=== PATIENT | male | born 1955 | race Caucasian/White ===

== ENCOUNTER 2016-05-30 07:04 | Day surgery (SDC) | payer BC, MEDICARE, OTHER ==
[2016-05-26 16:13] VITALS: BMI 22.0
[~2016-05-30 07:04] MED LIST: LACTATED RINGERS 1,000 ML IV SCH
[2016-05-30 07:20] VITALS: RESP 16; TEMP 97.5
[2016-05-30 07:26] LABS: Glucose,Whole Blood 156 mg/dL (75-99)
[2016-05-30] MEDS ORDERED: LIDOCAINE 1% INJ 10MG/ML (20 ML MDV) ONE (07:37)
[2016-05-30] MEDS ORDERED: PROPOFOL 10 MG/ML 20 ML VIAL IV ONE (07:37)
--- NOTE | 2016-05-30 07:39 | P.GSHP ---
History of Present Illness H&P Date: 05/30/16 Chief Complaint: Screening colonoscopy This is a 60-year-old male who presents today for screening colonoscopy. He has never had a colonoscopy before. Past Medical History Past Medical History: Diabetes Mellitus, Hypertension, Myocardial Infarction ([place] ) Additional Past Medical History / Comment(s): hx migraines, hx ulcer, Last Myocardial Infarction Date:: 2011 History of Any Multi-Drug Resistant Organisms: None Reported Past Surgical History: No Surgical Hx Reported Past Anesthesia/Blood Transfusion Reactions: No Reported Reaction Past Psychological History: No Psychological Hx Reported Smoking Status: Former smoker Past Alcohol Use History: None Reported Additional Past Alcohol Use History / Comment(s): quit smoking 16 yrs ago, smoked since age 10 Past Drug Use History: Marijuana - Past Family History Sister(s) Family Medical History: Cancer Medications and Allergies Home Medications Medication Instructions Recorded Confirmed Type Aspirin [Adult Low Dose Aspirin EC] 81 mg PO DAILY 05/26/16 05/30/16 History Ergocalciferol [Vitamin D2] 50,000 unit PO Q7D 05/26/16 05/30/16 History Ramipril [Altace] 2.5 mg PO 1300 05/26/16 05/30/16 History metFORMIN HCL 1,000 mg PO BID 05/26/16 05/30/16 History Allergies Allergy/AdvReac Type Severity Reaction Status Date / Time onion Allergy Dyspnea,throat Verified 05/26/16 16:00 swelling Surgical - Exam Vital Signs Temp Pulse Resp BP Pulse Ox 97.5 F L 73 16 114/78 99 05/30/16 07:18 05/30/16 07:18 05/30/16 07:18 05/30/16 07:18 05/30/16 07:18 - General well developed, no distress - Eyes PERRL - ENT normal pinna - Neck no masses - Respiratory normal expansion - Cardiovascular Rhythm: regular - Abdomen Abdomen: soft, non tender Results - Labs Abnormal Lab Results - Last 24 Hours (Table) 05/30/16 Range/Units 07:22 POC Glucose (mg/dL) 156 H (75-99) mg/dL Assessment and Plan Plan: We'll perform initial screening colonoscopy.
--- NOTE | 2016-05-30 07:48 | P.OP ---
Date of Procedure: 05/30/16 Preoperative Diagnosis: Screening colonoscopy Postoperative Diagnosis: Normal colonoscopy Procedure(s) Performed: Colonoscopy Anesthesia: MAC Surgeon: Justin Jay Pathology: none sent Condition: stable Disposition: PACU Description of Procedure: PROCEDURE: The patient was placed on the endoscopy table in the lateral position. Digital rectal examination was performed which revealed no abnormalities. The prostate was symmetrical without nodules. Flexible colonoscope was then placed in the patient's anus and passed throughout the entire colon. The ileocecal valve was visualized. The cecum, ascending, transverse, descending and sigmoid colon were normal. The rectum was normal as well. There were no masses, polyps or diverticula noted in the entire colon. SUMMARY OF FINDINGS: Normal colonoscopy.
[2016-05-30 08:28] VITALS: BP 107/75; PULSE 66
== END 2016-05-30 08:46 | disposition home or self-care (01) ==
LOC: ORWHC2ENDO 07:04
PROVIDERS: ATTEND Surgery
DX: Z12.11 Encounter for screening for malignant neoplasm of colon (principal); I25.10 Atherosclerotic heart disease of native coronary artery without angina pectoris; I25.2 Old myocardial infarction; I10 Essential (primary) hypertension; G43.909 Migraine, unspecified, not intractable, without status migrainosus; F12.90 Cannabis use, unspecified, uncomplicated; E11.9 Type 2 diabetes mellitus without complications; Z79.84 Long term (current) use of oral hypoglycemic drugs; Z79.82 Long term (current) use of aspirin; Z79.899 Other long term (current) drug therapy; Z87.891 Personal history of nicotine dependence
CPT/HCPCS: J2001; J2704; G0121; 45378

== ENCOUNTER 2017-07-05 13:16 | Inpatient (IN) | payer BC ==
[2017-07-05] MEDS ORDERED: ONDANSETRON 4 MG/2 ML VIAL IVP STA (13:29)
[2017-07-05] MEDS ORDERED: PANTOPRAZOLE 40 MG/10 ML VIAL IVP STA (13:29)
[2017-07-05] MEDS ORDERED: SODIUM CHLORIDE 0.9% 1,000 ML IV STA (13:29)
--- NOTE | 2017-07-05 13:31 | ED ---
General Adult HPI - General Chief complaint: GI Bleed Stated complaint: Vomiting Blood Time Seen by Provider: 07/05/17 13:20 Source: patient, EMS, RN notes reviewed Mode of arrival: EMS Limitations: no limitations - History of Present Illness Initial comments: This is a 61-year-old male who presents emergency Department with a complaint of syncope. Patient states he got up and felt lightheaded and nauseated went to the bathroom and vomited up blood 3 times and when EMS arrived he was unresponsive. He became responsive soon thereafter. Patient denies any drinking history patient denies any previous history of vomiting up blood. Patient denies any blood disorders. Patient denies any pain. Patient currently states he has no headache no numbness or weakness. Patient denies lightheadedness while lying in bed. Patient denies chest pain palpitations difficulty breathing shortness of breath. Patient denies any abdominal pain. Patient states he still mildly nauseated. Patient denies any recent fever chills or cough. Patient is unaware of why this is happening. - Related Data Home Medications Medication Instructions Recorded Confirmed Aspirin [Adult Low Dose Aspirin EC] 81 mg PO DAILY 05/26/16 07/05/17 Ergocalciferol [Vitamin D2] 50,000 unit PO SA 05/26/16 07/05/17 Ramipril [Altace] 2.5 mg PO DAILY 05/26/16 07/05/17 metFORMIN HCL 1,000 mg PO BID 05/26/16 07/05/17 Cilostazol [Pletal] 100 mg PO BID 07/05/17 07/05/17 Fenofibrate Nanocrystallized 145 mg PO DAILY 07/05/17 07/05/17 [Fenofibrate] Gabapentin 600 mg PO HS 07/05/17 07/05/17 Allergies Allergy/AdvReac Type Severity Reaction Status Date / Time onion Allergy Dyspnea,throat Verified 07/05/17 13:37 swelling Review of Systems ROS Statement: Those systems with pertinent positive or pertinent negative responses have been documented in the HPI. ROS Other: All systems not noted in ROS Statement are negative. Past Medical History Past Medical History: Diabetes Mellitus, Hypertension, Myocardial Infarction ([place] ) Additional Past Medical History / Comment(s): hx migraines, hx ulcer, Last Myocardial Infarction Date:: 2011 History of Any Multi-Drug Resistant Organisms: None Reported Past Surgical History: No Surgical Hx Reported Past Anesthesia/Blood Transfusion Reactions: No Reported Reaction Past Psychological History: No Psychological Hx Reported Smoking Status: Former smoker Past Alcohol Use History: None Reported Past Drug Use History: Marijuana - Past Family History Sister(s) Family Medical History: Cancer General Exam - General Exam Comments Initial Comments: GENERAL: Patient is well-developed and well-nourished. Patient is nontoxic and well- hydrated and is in mild distress. ENT: Neck is soft and supple. No significant lymphadenopathy is noted. Oropharynx is clear. Moist mucous membranes. Neck has full range of motion without eliciting any pain. EYES: The sclera were anicteric and conjunctiva were pink and moist. Extraocular movements were intact and pupils were equal round and reactive to light. Eyelids were unremarkable. PULMONARY: Unlabored respirations. Good breath sounds bilaterally. No audible rales rhonchi or wheezing was noted. CARDIOVASCULAR: There is a regular rate and rhythm without any murmurs gallops or rubs. ABDOMEN: Soft and nontender with normal bowel sounds. No palpable organomegaly was noted. There is no palpable pulsatile mass. SKIN: Skin is clear with no lesions or rashes and otherwise unremarkable. NEUROLOGIC: Patient is alert and oriented x3. Cranial nerves II through XII are grossly intact. Motor and sensory are also intact. Normal speech, volume and content. Symmetrical smile. MUSCULOSKELETAL: Normal extremities with adequate strength and full range of motion. No lower extremity swelling or edema. No calf tenderness. LYMPHATICS: No significant lymphadenopathy is noted PSYCHIATRIC: Normal psychiatric evaluation. Normal interpersonal interactions appears functionally intact in deals appropriately with others. No signs of depression. No signs of anxiety. Limitations: no limitations Course Vital Signs 07/05/17 07/05/17 07/05/17 13:18 14:00 14:25 Temperature 96.9 F L Pulse Rate 96 75 96 Respiratory 16 20 20 Rate Blood Pressure 125/79 126/85 113/76 O2 Sat by Pulse 97 99 100 Oximetry Medical Decision Making - Medical Decision Making EKG shows normal sinus rhythm at 89 bpm NV interval is 124 tresses 84 QT interval 370 QTC is 450. Patient's EKG shows no ST segment elevation or depression or T wave abnormalities are noted. Patient vomited while in the emergency department it did look like hematemesis however when we tested it came up negative. I spoke with Dr. Fajardo I will be admitting the patient I will be consulting GI and I will be doing repeat CBCs. I wrote admitting orders. - Lab Data Result diagrams: 07/05/17 14:05 07/05/17 14:05 Lab Results 07/05/17 07/05/17 07/05/17 Range/Units 14:05 14:05 14:05 WBC 13.3 H (3.8-10.6) k/uL RBC 4.38 (4.30-5.90) m/uL Hgb 13.4 (13.0-17.5) gm/dL Hct 36.7 L (39.0-53.0) % MCV 83.9 (80.0-100.0) fL MCH 30.6 (25.0-35.0) pg MCHC 36.5 (31.0-37.0) g/dL RDW 12.9 (11.5-15.5) % Plt Count 256 (150-450) k/uL Neutrophils % 84 % Lymphocytes % 12 % Monocytes % 3 % Eosinophils % 0 % Basophils % 0 % Neutrophils # 11.1 H (1.3-7.7) k/uL Lymphocytes # 1.6 (1.0-4.8) k/uL Monocytes # 0.4 (0-1.0) k/uL Eosinophils # 0.1 (0-0.7) k/uL Basophils # 0.0 (0-0.2) k/uL PT (9.0-12.0) sec INR (<1.2) APTT (22.0-30.0) sec Sodium 143 (137-145) mmol/L Potassium 3.8 (3.5-5.1) mmol/L Chloride 104 (98-107) mmol/L Carbon Dioxide 27 (22-30) mmol/L Anion Gap 12 mmol/L BUN 25 H (9-20) mg/dL Creatinine 0.71 (0.66-1.25) mg/dL Est GFR (CKD-EPI)AfAm >90 (>60 ml/min/1.73 sqM) Est GFR (CKD-EPI)NonAf >90 (>60 ml/min/1.73 sqM) Glucose 191 H (74-99) mg/dL Plasma Lactic Acid Parish (0.7-2.0) mmol/L Calcium 8.9 (8.4-10.2) mg/dL Total Bilirubin 0.4 (0.2-1.3) mg/dL AST 17 (17-59) U/L ALT 21 (21-72) U/L Alkaline Phosphatase 30 L (38-126) U/L Total Creatine Kinase 73 (55-170) U/L CK-MB (CK-2) 1.6 (0.0-2.4) ng/mL CK-MB (CK-2) Rel Index 2.2 Troponin I <0.012 (0.000-0.034) ng/mL Total Protein 6.3 (6.3-8.2) g/dL Albumin 4.0 (3.5-5.0) g/dL Gastric Occult Blood (Negative) Salicylates <1.0 mg/dL Blood Type Blood Type Recheck Antibody Screen Spec Expiration Date 07/05/17 07/05/17 07/05/17 Range/Units 14:05 14:05 14:05 WBC (3.8-10.6) k/uL RBC (4.30-5.90) m/uL Hgb (13.0-17.5) gm/dL Hct (39.0-53.0) % MCV (80.0-100.0) fL MCH (25.0-35.0) pg MCHC (31.0-37.0) g/dL RDW (11.5-15.5) % Plt Count (150-450) k/uL Neutrophils % % Lymphocytes % % Monocytes % % Eosinophils % % Basophils % % Neutrophils # (1.3-7.7) k/uL Lymphocytes # (1.0-4.8) k/uL Monocytes # (0-1.0) k/uL Eosinophils # (0-0.7) k/uL Basophils # (0-0.2) k/uL PT 11.3 (9.0-12.0) sec INR 1.2 H (<1.2) APTT 21.6 L (22.0-30.0) sec Sodium (137-145) mmol/L Potassium (3.5-5.1) mmol/L Chloride (98-107) mmol/L Carbon Dioxide (22-30) mmol/L Anion Gap mmol/L BUN (9-20) mg/dL Creatinine (0.66-1.25) mg/dL Est GFR (CKD-EPI)AfAm (>60 ml/min/1.73 sqM) Est GFR (CKD-EPI)NonAf (>60 ml/min/1.73 sqM) Glucose (74-99) mg/dL Plasma Lactic Acid Parish 1.1 (0.7-2.0) mmol/L Calcium (8.4-10.2) mg/dL Total Bilirubin (0.2-1.3) mg/dL AST (17-59) U/L ALT (21-72) U/L Alkaline Phosphatase (38-126) U/L Total Creatine Kinase (55-170) U/L CK-MB (CK-2) (0.0-2.4) ng/mL CK-MB (CK-2) Rel Index Troponin I (0.000-0.034) ng/mL Total Protein (6.3-8.2) g/dL Albumin (3.5-5.0) g/dL Gastric Occult Blood (Negative) Salicylates mg/dL Blood Type A Negative Blood Type Recheck CABO Indicated Antibody Screen NEGATIVE Spec Expiration Date 07/08/2017 - 230407/05/17 Range/Units 14:25 WBC (3.8-10.6) k/uL RBC (4.30-5.90) m/uL Hgb (13.0-17.5) gm/dL Hct (39.0-53.0) % MCV (80.0-100.0) fL MCH (25.0-35.0) pg MCHC (31.0-37.0) g/dL RDW (11.5-15.5) % Plt Count (150-450) k/uL Neutrophils % % Lymphocytes % % Monocytes % % Eosinophils % % Basophils % % Neutrophils # (1.3-7.7) k/uL Lymphocytes # (1.0-4.8) k/uL Monocytes # (0-1.0) k/uL Eosinophils # (0-0.7) k/uL Basophils # (0-0.2) k/uL PT (9.0-12.0) sec INR (<1.2) APTT (22.0-30.0) sec Sodium (137-145) mmol/L Potassium (3.5-5.1) mmol/L Chloride (98-107) mmol/L Carbon Dioxide (22-30) mmol/L Anion Gap mmol/L BUN (9-20) mg/dL Creatinine (0.66-1.25) mg/dL Est GFR (CKD-EPI)AfAm (>60 ml/min/1.73 sqM) Est GFR (CKD-EPI)NonAf (>60 ml/min/1.73 sqM) Glucose (74-99) mg/dL Plasma Lactic Acid Parish (0.7-2.0) mmol/L Calcium (8.4-10.2) mg/dL Total Bilirubin (0.2-1.3) mg/dL AST (17-59) U/L ALT (21-72) U/L Alkaline Phosphatase (38-126) U/L Total Creatine Kinase (55-170) U/L CK-MB (CK-2) (0.0-2.4) ng/mL CK-MB (CK-2) Rel Index Troponin I (0.000-0.034) ng/mL Total Protein (6.3-8.2) g/dL Albumin (3.5-5.0) g/dL Gastric Occult Blood Negative (Negative) Salicylates mg/dL Blood Type Blood Type Recheck Antibody Screen Spec Expiration Date Disposition Clinical Impression: Syncope, Acute vomiting Disposition: ADMITTED IP TO THIS HOSP Referrals: Dilia Velez DO [Primary Care Provider] - 1-2 days Time of Disposition: 15:07
[2017-07-05 14:21] LABS: Basophils % (A) 0 %; Eosinophils # (A) 0.1 k/uL (0-0.7); Eosinophils % (A) 0 %; HCT 36.7 % (39.0-53.0); HGB 13.4 gm/dL (13.0-17.5); Lymphocytes # (A) 1.6 k/uL (1.0-4.8); Lymphocytes % (A) 12 %; MCH 30.6 pg (25.0-35.0); MCHC 36.5 g/dL (31.0-37.0); MCV 83.9 fL (80.0-100.0); Mean Platelet Volume 7.4; Monocytes # (A) 0.4 k/uL (0-1.0); Monocytes % (A) 3 %; Neutrophils # (A) 11.1 k/uL (1.3-7.7); Neutrophils % (A) 84 %; Platelet Count 256 k/uL (150-450); RBC 4.38 m/uL (4.30-5.90); RDW 12.9 % (11.5-15.5); WBC 13.3 k/uL (3.8-10.6)
[2017-07-05 14:27] LABS: ALT 21 U/L (21-72); AST 17 U/L (17-59); Alkaline Phosphatase 30 U/L (38-126); Anion Gap 12 mmol/L; Blood Urea Nitrogen 25 mg/dL (9-20); Calcium 8.9 mg/dL (8.4-10.2); Carbon Dioxide 27 mmol/L (22-30); Chloride 104 mmol/L (98-107); Glucose 191 mg/dL (74-99); Potassium 3.8 mmol/L (3.5-5.1); Salicylate <1.0 mg/dL; Sodium 143 mmol/L (137-145); Total Bilirubin 0.4 mg/dL (0.2-1.3); Total Protein 6.3 g/dL (6.3-8.2)
[2017-07-05 14:38] LABS: INR 1.2 (<1.2); Partial Thromboplastin Time 21.6 sec (22.0-30.0); Prothrombin Time 11.3 sec (9.0-12.0)
[2017-07-05 14:40] LABS: Creatine Kinase 73 U/L (55-170)
[2017-07-05 14:53] LABS: Creatine Kinase MB 1.6 ng/mL (0.0-2.4); Troponin I <0.012 ng/mL (0.000-0.034)
[2017-07-05] MEDS ORDERED: SODIUM CHLORIDE 0.9% 1,000 ML IV ONE (15:16)
[2017-07-05 16:59] LABS: Glucose,Whole Blood 163 mg/dL (75-99)
[2017-07-05 17:07] VITALS: RESP 16
[2017-07-05] MEDS: PANTOPRAZOLE 40 MG/10 ML VIAL IVP SCH (20:05)
[2017-07-05 20:45] LABS: Glucose,Whole Blood 125 mg/dL (75-99)
[2017-07-05 23:14] LABS: Basophils % (A) 0 %; Eosinophils % (A) 0 %; HCT 30.6 % (39.0-53.0); HGB 10.9 gm/dL (13.0-17.5); Lymphocytes # (A) 1.8 k/uL (1.0-4.8); Lymphocytes % (A) 14 %; MCHC 35.7 g/dL (31.0-37.0); Monocytes # (A) 0.6 k/uL (0-1.0); Monocytes % (A) 5 %; Neutrophils # (A) 10.1 k/uL (1.3-7.7); Neutrophils % (A) 80 %; Platelet Count 216 k/uL (150-450); RBC 3.64 m/uL (4.30-5.90); RDW 12.9 % (11.5-15.5); WBC 12.6 k/uL (3.8-10.6)
[2017-07-06 05:54] LABS: Glucose,Whole Blood 120 mg/dL (75-99)
[2017-07-06 06:23] LABS: Basophils % (A) 0 %; Eosinophils # (A) 0.1 k/uL (0-0.7); Eosinophils % (A) 1 %; HCT 32.8 % (39.0-53.0); HGB 11.2 gm/dL (13.0-17.5); Lymphocytes # (A) 2.3 k/uL (1.0-4.8); Lymphocytes % (A) 21 %; MCH 29.3 pg (25.0-35.0); MCHC 34.1 g/dL (31.0-37.0); MCV 86.1 fL (80.0-100.0); Mean Platelet Volume 8.6; Monocytes # (A) 0.5 k/uL (0-1.0); Monocytes % (A) 5 %; Neutrophils # (A) 7.9 k/uL (1.3-7.7); Neutrophils % (A) 73 %; Platelet Count 218 k/uL (150-450); RBC 3.81 m/uL (4.30-5.90); RDW 13.3 % (11.5-15.5); WBC 10.9 k/uL (3.8-10.6)
[2017-07-06 06:38] LABS: Anion Gap 10 mmol/L; Blood Urea Nitrogen 17 mg/dL (9-20); Calcium 8.5 mg/dL (8.4-10.2); Carbon Dioxide 26 mmol/L (22-30); Chloride 107 mmol/L (98-107); Glucose 121 mg/dL (74-99); Potassium 3.5 mmol/L (3.5-5.1); Sodium 143 mmol/L (137-145)
[2017-07-06] MEDS: PANTOPRAZOLE 40 MG/10 ML VIAL IVP SCH ×2 (08:39→20:59)
--- NOTE | 2017-07-06 11:08 | P.CONS ---
History of Present Illness - Reason for Consult Consult date: 07/06/17 GI bleed hematemesis Requesting physician: Kassy Fajardo - History of Present Illness 61-year-old male PMH diabetes, hypertension, migraines, neuropathy, admitted with acute syncopal episode with hematemesis that occurred yesterday. He developed increased nausea followed by 5-6 episodes of burgundy-colored emesis. Presently denies abdominal pain. Denies dyspepsia or dysphagia indigestion. Occasional [id number] Tums as needed. Denies melena or hematochezia. No history of GI bleed. No history of EGD. Colonoscopy about 6 months ago unremarkable. He's been told in the past he has an ulcer but never documented by endoscopy. He takes baby aspirin and Pletal on a daily basis. Hemoglobin on admission 13.4 presently 11.2. White count 10.9. BUN 25. Creatinine 0.7. Presently 17 and 0.7. No EtOH NSAIDs or excessive usage of aspirin. Review of Systems RConstitutional: Denies fever, chills, sweats, weight gain, or loss. HEENT: Negative for migraines, blurred vision or loss, earaches, drainage, tinnitus, oral mucosal lesions, dysphagia, or odynophagia. Cardiac: Negative for chest pain, arrhythmias, or palpitation. Respiratory: Negative for shortness of breath, hemoptysis, cough, or sputum production. Gastrointestinal: See HPI for pertinent findings. Genitourinary: Negative for hematuria, urgency, frequency, polyuria, dysuria, or penile discharge. Musculoskeletal: Negative for muscle aches, swelling, arthritis, and arthralgias. Neurologic: Negative for stroke or TIA. Endocrine: Negative for thyroid problems. Skin: Negative for rash or itching. Psychiatric: Negative history for depression and anxietyale Past Medical History Past Medical History: Diabetes Mellitus, Hypertension, Myocardial Infarction ([place] ) Additional Past Medical History / Comment(s): hx migraines, hx ulcer, on gabapentin when asked if he had neuropathy -he stated no Last Myocardial Infarction Date:: 2011 History of Any Multi-Drug Resistant Organisms: None Reported Past Surgical History: No Surgical Hx Reported Additional Past Surgical History / Comment(s): colonoscopy denies having egd or heart caths Past Anesthesia/Blood Transfusion Reactions: No Reported Reaction Smoking Status: Former smoker - Past Family History Sister(s) Family Medical History: Cancer Father Family Medical History: Unable to Obtain Additional Family Medical History / Comment(s): pt stated he never knew his dad Mother Additional Family Medical History / Comment(s): stated from poss medication reaction Medications and Allergies Home Medications Medication Instructions Recorded Confirmed Type Aspirin [Adult Low Dose Aspirin EC] 81 mg PO DAILY 05/26/16 07/05/17 History Ergocalciferol [Vitamin D2] 50,000 unit PO SA 05/26/16 07/05/17 History Ramipril [Altace] 2.5 mg PO DAILY 05/26/16 07/05/17 History metFORMIN HCL 1,000 mg PO BID 05/26/16 07/05/17 History Cilostazol [Pletal] 100 mg PO BID 07/05/17 07/05/17 History Fenofibrate Nanocrystallized 145 mg PO DAILY 07/05/17 07/05/17 History [Fenofibrate] Gabapentin 600 mg PO HS 07/05/17 07/05/17 History Allergies Allergy/AdvReac Type Severity Reaction Status Date / Time onion Allergy Dyspnea,throat Verified 07/05/17 13:37 swelling Physical Exam Vitals: Vital Signs Temp Pulse Pulse Resp BP BP Pulse Ox 07/06/17 08:00 97.8 F 84 16 108/70 99 07/06/17 04:00 98 F 97 16 119/75 97 07/05/17 23:37 98.5 F 91 16 123/71 98 07/05/17 20:00 97.8 F 91 16 119/72 100 07/05/17 17:06 97.3 F L 88 16 110/73 98 07/05/17 16:00 98.3 F 85 18 111/72 100 07/05/17 15:30 85 20 107/74 100 07/05/17 15:00 87 20 114/76 100 07/05/17 14:25 96 20 113/76 100 07/05/17 14:00 75 20 126/85 99 07/05/17 13:18 96.9 F L 96 16 125/79 97 Intake and Output 07/05/17 07/06/17 07/06/17 22:59 06:59 14:59 Intake Total 800 80 Output Total 600 Balance 200 80 Intake: IV 800 80 0.9 80 Sodium Chloride 0.9% 1, 800 000 ml @ 100 mls/hr IV . Q10H ONE Rx#:[id number] Output: Urine 600 Other: Voiding Method Toilet Toilet Toilet Weight 63.3 kg General appearance: The patient is alert, oriented, in no acute distress. HET: Head is normocephalic and atraumatic. Pupils are equal and reactive. Oropharynx is clear without lesions. Neck: Supple without lymphadenopathy. Trachea midline. Heart: S1 S2. Regular rate and rhythm. Lungs: No crackles or wheezes are heard. Abdomen: Soft, nontender, nondistended with bowel sounds. No peritoneal signs. No palpable organomegaly or masses. Extremities: Normal skin color and turgor. No cyanosis, rash, ulceration, clubbing, or edema. Radial and pedal pulses are 2/4 bilaterally. Neurological: No focal deficits. Strength and sensation are grossly intact. Results CBC & Chem 7: 07/06/17 06:06 07/06/17 06:06 Labs: Abnormal Lab Results - Last 24 Hours (Table) 07/05/17 07/05/17 07/05/17 Range/Units 14:05 14:05 14:05 WBC 13.3 H (3.8-10.6) k/uL RBC (4.30-5.90) m/uL Hgb (13.0-17.5) gm/dL Hct 36.7 L (39.0-53.0) % Neutrophils # 11.1 H (1.3-7.7) k/uL INR 1.2 H (<1.2) APTT 21.6 L (22.0-30.0) sec BUN 25 H (9-20) mg/dL Glucose 191 H (74-99) mg/dL POC Glucose (mg/dL) (75-99) mg/dL Alkaline Phosphatase 30 L (38-126) U/L 07/05/17 07/05/17 07/05/17 Range/Units 16:55 20:37 22:51 WBC 12.6 H (3.8-10.6) k/uL RBC 3.64 L (4.30-5.90) m/uL Hgb 10.9 L (13.0-17.5) gm/dL Hct 30.6 L (39.0-53.0) % Neutrophils # 10.1 H (1.3-7.7) k/uL INR (<1.2) APTT (22.0-30.0) sec BUN (9-20) mg/dL Glucose (74-99) mg/dL POC Glucose (mg/dL) 163 H 125 H (75-99) mg/dL Alkaline Phosphatase (38-126) U/L 07/06/17 07/06/17 07/06/17 Range/Units 05:53 06:06 06:06 WBC 10.9 H (3.8-10.6) k/uL RBC 3.81 L (4.30-5.90) m/uL Hgb 11.2 L (13.0-17.5) gm/dL Hct 32.8 L (39.0-53.0) % Neutrophils # 7.9 H (1.3-7.7) k/uL INR (<1.2) APTT (22.0-30.0) sec BUN (9-20) mg/dL Glucose 121 H (74-99) mg/dL POC Glucose (mg/dL) 120 H (75-99) mg/dL Alkaline Phosphatase (38-126) U/L Assessment and Plan (1) Hematemesis with nausea Narrative/Plan: Possible peptic ulcer disease possible neoplasm possible AVM. Current Visit: Yes Status: Acute Code(s): K92.0 - HEMATEMESIS SNOMED Code( s): 2211365 (2) Acute blood loss anemia Current Visit: Yes Status: Acute Code(s): D62 - ACUTE POSTHEMORRHAGIC ANEMIA SNOMED Code(s): 458721655 (3) Syncope Current Visit: Yes Status: Acute Code(s): R55 - SYNCOPE AND COLLAPSE SNOMED Code(s): 930357645 Plan: 1. Patient has had no recurrent episodes of hematemesis since yesterday and is requesting discharge. Inpatient endoscopy versus outpatient was discussed and patient prefers outpatient EGD this can be scheduled as early as Monday. Inpatient EGD was offered for tomorrow morning but he declined. Case was discussed with attending we'll leave discharge decision to their service. Recommend on discharge Protonix 40 mg daily no aspirin or Plental until EGD is completed. 2. Patient was advised to return to the emergency room if he has another episode of hematemesis or develops melena hematochezia fever chills abdominal pain. Thank you for this kind referral and the opportunity to participate in the care of your patient. This consultation was discussed with Dr. Mccoy. The impression and plan of care have been directed as dictated.
--- NOTE | 2017-07-06 11:31 | P.HPIM ---
History of Present Illness H&P Date: 07/06/17 Chief Complaint: Vomiting blood This is a 61-year-old male, a patient of [facility]. Patient has a past medical history of diabetes mellitus, hypertension, myocardial infarction , hyperlipidemia, peripheral vascular disease. Patient presents to the emergency room after having hematemesis as well as a syncopal episode. Patient reports that he had not slept well the night before and woke up in the morning and vomited what he presumed as blood 3 times. He does report drinking a lot of coffee. When he was coming back from the restroom he passed out. He is unsure of how long he passed out for. Family members called EMS. And initially when EMS arrived patient was unresponsive. When he came to he was being placed in the ambulance. Hemoglobin on admission 10.9 white count elevated at 12.6. Gastric occult blood was negative on admission. Patient had one episode of emesis in the ER. He is currently nothing by mouth. He's had no further emesis. He aspirin and Pletal have been placed on hold. Repeat hemoglobin this morning is 11.2. Patient seen by GI service and offered have an EGD for tomorrow morning. At this time patient is refusing. Also requests patient syncopal episode and echocardiogram has been ordered as well as orthostatics. Patient has been up and ambulating this morning without any dizziness or lightheadedness. Denies any chest pain or shortness of breath. Denies any further episodes of vomiting. Denies any bowel movement changes or urinary symptoms. No previous history of GI bleed. Denies any nicotine use or alcohol use. EKG normal sinus rhythm on admission. Patient does admit to having issues with heartburn on a regular basis. He does drink about 4 cups of coffee a day. Review of Systems Please refer to HPI otherwise unremarkable Past Medical History Past Medical History: Diabetes Mellitus, Hypertension, Myocardial Infarction ([place] ) Additional Past Medical History / Comment(s): hx migraines, hx ulcer, on gabapentin when asked if he had neuropathy -he stated no Last Myocardial Infarction Date:: 2011 History of Any Multi-Drug Resistant Organisms: None Reported Past Surgical History: No Surgical Hx Reported Additional Past Surgical History / Comment(s): colonoscopy denies having egd or heart caths Past Anesthesia/Blood Transfusion Reactions: No Reported Reaction Smoking Status: Former smoker - Past Family History Sister(s) Family Medical History: Cancer Father Family Medical History: Unable to Obtain Additional Family Medical History / Comment(s): pt stated he never knew his dad Mother Additional Family Medical History / Comment(s): stated from poss medication reaction Medications and Allergies Home Medications Medication Instructions Recorded Confirmed Type Aspirin [Adult Low Dose Aspirin EC] 81 mg PO DAILY 05/26/16 07/05/17 History Ergocalciferol [Vitamin D2] 50,000 unit PO SA 05/26/16 07/05/17 History Ramipril [Altace] 2.5 mg PO DAILY 05/26/16 07/05/17 History metFORMIN HCL 1,000 mg PO BID 05/26/16 07/05/17 History Cilostazol [Pletal] 100 mg PO BID 07/05/17 07/05/17 History Fenofibrate Nanocrystallized 145 mg PO DAILY 07/05/17 07/05/17 History [Fenofibrate] Gabapentin 600 mg PO HS 07/05/17 07/05/17 History Allergies Allergy/AdvReac Type Severity Reaction Status Date / Time onion Allergy Dyspnea,throat Verified 07/05/17 13:37 swelling Physical Exam Vitals: Vital Signs Temp Pulse Pulse Resp BP BP Pulse Ox 07/06/17 08:00 97.8 F 84 16 108/70 99 07/06/17 04:00 98 F 97 16 119/75 97 07/05/17 23:37 98.5 F 91 16 123/71 98 07/05/17 20:00 97.8 F 91 16 119/72 100 07/05/17 17:06 97.3 F L 88 16 110/73 98 07/05/17 16:00 98.3 F 85 18 111/72 100 07/05/17 15:30 85 20 107/74 100 07/05/17 15:00 87 20 114/76 100 07/05/17 14:25 96 20 113/76 100 07/05/17 14:00 75 20 126/85 99 07/05/17 13:18 96.9 F L 96 16 125/79 97 Intake and Output 07/05/17 07/06/17 07/06/17 22:59 06:59 14:59 Intake Total 800 80 Output Total 600 Balance 200 80 Intake: IV 800 80 0.9 80 Sodium Chloride 0.9% 1, 800 000 ml @ 100 mls/hr IV . Q10H ONE Rx#:[id number] Output: Urine 600 Other: Voiding Method Toilet Toilet Toilet Weight 63.3 kg Head normocephalic Neck supple Lungs clear to auscultation bilaterally no wheezing or crackles Heart regular rate and rhythm S1-S2, no rub or gallop Abdomen is soft nontender nondistended positive bowel sounds no hepatosplenomegaly Extremities no edema Neuro alert and orientated to 3 Results CBC & Chem 7: 07/06/17 06:06 07/06/17 06:06 Labs: Abnormal Lab Results - Last 24 Hours (Table) 07/05/17 07/05/17 07/05/17 Range/Units 14:05 14:05 14:05 WBC 13.3 H (3.8-10.6) k/uL RBC (4.30-5.90) m/uL Hgb (13.0-17.5) gm/dL Hct 36.7 L (39.0-53.0) % Neutrophils # 11.1 H (1.3-7.7) k/uL INR 1.2 H (<1.2) APTT 21.6 L (22.0-30.0) sec BUN 25 H (9-20) mg/dL Glucose 191 H (74-99) mg/dL POC Glucose (mg/dL) (75-99) mg/dL Alkaline Phosphatase 30 L (38-126) U/L 07/05/17 07/05/17 07/05/17 Range/Units 16:55 20:37 22:51 WBC 12.6 H (3.8-10.6) k/uL RBC 3.64 L (4.30-5.90) m/uL Hgb 10.9 L (13.0-17.5) gm/dL Hct 30.6 L (39.0-53.0) % Neutrophils # 10.1 H (1.3-7.7) k/uL INR (<1.2) APTT (22.0-30.0) sec BUN (9-20) mg/dL Glucose (74-99) mg/dL POC Glucose (mg/dL) 163 H 125 H (75-99) mg/dL Alkaline Phosphatase (38-126) U/L 07/06/17 07/06/17 07/06/17 Range/Units 05:53 06:06 06:06 WBC 10.9 H (3.8-10.6) k/uL RBC 3.81 L (4.30-5.90) m/uL Hgb 11.2 L (13.0-17.5) gm/dL Hct 32.8 L (39.0-53.0) % Neutrophils # 7.9 H (1.3-7.7) k/uL INR (<1.2) APTT (22.0-30.0) sec BUN (9-20) mg/dL Glucose 121 H (74-99) mg/dL POC Glucose (mg/dL) 120 H (75-99) mg/dL Alkaline Phosphatase (38-126) U/L Assessment and Plan Assessment: 1. Hematemesis: Concerns for possible peptic ulcer disease. Patient seen by GI service and they are recommending a EGD. Patient is refusing EGD at this time. Would like to have it completed in the outpatient setting on Monday. Patient is on Protonix. Aspirin and Pletal on hold 2. Syncopal episode likely vasovagal due to the hematemesis. However, will check orthostatic blood pressure is also 2-D echo 3. Leukocytosis present on admission likely reactive: White count has decreased total 0.6-10.9 4. Diabetes mellitus type 2: Resume metformin and sliding scale coverage 5. Essential hypertension: Blood pressures stable but on the lower side at this time we'll hold his lisinopril 6. Peripheral vascular disease: Hold Pletal for now due to the hematemesis 7. Hyperlipidemia continue fenofibrate Time with Patient: Greater than 30 (Greater than 50% of the total time spent in counseling and coordination of care.I performed an examination of the patient and discussed their management with the physician Camp Dishwasher. I have reviewed the Physician Camp Dishwasher's notes and agree with the documented findings and plan of care)
[2017-07-06 11:37] LABS: Glucose,Whole Blood 122 mg/dL (75-99)
--- NOTE | 2017-07-06 12:57 | ECHOF ---
Referral Reason:syncope MEASUREMENTS -------- HEIGHT: 172.7 cm WEIGHT: 63.0 kg BP: 108/70 RVIDd: 3.0 cm (< 3.3) IVSd: 1.1 cm (0.6 - 1.1) LVIDd: 4.4 cm (3.9 - 5.3) LVPWd: 0.9 cm (0.6 - 1.1) IVSs: 1.6 cm LVIDs: 2.9 cm LVPWs: 1.4 cm LA Diam: 3.3 cm (2.7 - 3.8) LAESV Index (A-L): 17.55 ml/m Ao Diam: 3.2 cm (2.0 - 3.7) AV Cusp: 2.0 cm (1.5 - 2.6) MV EXCURSION: 20.651 mm (> 18.000) MV EF SLOPE: 133 mm/s (70 - 150) EPSS: 0.4 cm MV E Bert: 0.90 m/s MV DecT: 211 ms MV A Bert: 0.77 m/s MV E/A Ratio: 1.18 FINDINGS -------- Sinus rhythm. This was a technically good study. The left ventricular size is normal. There is borderline concentric left ventricular hypertrophy. Overall left ventricular systolic function is normal with, an EF between 55 - 60 %. The right ventricle is normal in size. Normal LA size by volume 22+/-6 ml/m2. The right atrium is normal in size. The aortic valve is trileaflet and appears structurally normal. The mitral valve is normal. The tricuspid valve appears structurally normal. There is no pulmonic regurgitation present. The aortic root size is normal. Normal inferior vena cava with normal inspiratory collapse consistent with estimated right atrial pre ssure of 5 mmHg. There is no pericardial effusion. CONCLUSIONS -------- 1. Sinus rhythm. 2. This was a technically good study. 3. The left ventricular size is normal. 4. There is borderline concentric left ventricular hypertrophy. 5. Overall left ventricular systolic function is normal with, an EF between 55 - 60 %. 6. The right ventricle is normal in size. 7. Normal LA size by volume 22+/-6 ml/m2. 8. The right atrium is normal in size. 9. The aortic valve is trileaflet and appears structurally normal. 10. The mitral valve is normal. 11. The tricuspid valve appears structurally normal. 12. There is no pulmonic regurgitation present. 13. The aortic root size is normal. 14. Normal inferior vena cava with normal inspiratory collapse consistent with estimated right atrial pressure of 5 mmHg. 15. There is no pericardial effusion. MILL BEAM FITTER: Nicci Freeman RDCS
[2017-07-06] MEDS: INSULIN ASPART 100 UNIT/ML 1 ML 10 ML VIAL SQ SCH ×3 (13:40→20:59)
[2017-07-06 16:44] LABS: Glucose,Whole Blood 105 mg/dL (75-99)
[2017-07-06] MEDS: metFORMIN 500 MG TAB PO SCH (18:03)
[2017-07-06 20:10] LABS: Hemoglobin A1C 5.7 % (4.0-6.0)
[2017-07-06 20:52] LABS: Glucose,Whole Blood 129 mg/dL (75-99)
[2017-07-06] MEDS ORDERED: GABAPENTIN 300 MG CAP PO SCH (21:00)
[2017-07-07 05:52] LABS: Basophils % (A) 0 %; Eosinophils # (A) 0.1 k/uL (0-0.7); Eosinophils % (A) 1 %; HCT 31.3 % (39.0-53.0); HGB 11.1 gm/dL (13.0-17.5); Lymphocytes # (A) 2.2 k/uL (1.0-4.8); Lymphocytes % (A) 33 %; MCH 29.8 pg (25.0-35.0); MCHC 35.4 g/dL (31.0-37.0); MCV 84.3 fL (80.0-100.0); Mean Platelet Volume 8.3; Monocytes # (A) 0.2 k/uL (0-1.0); Monocytes % (A) 4 %; Neutrophils # (A) 4.1 k/uL (1.3-7.7); Neutrophils % (A) 61 %; Platelet Count 201 k/uL (150-450); RBC 3.71 m/uL (4.30-5.90); RDW 12.9 % (11.5-15.5); WBC 6.8 k/uL (3.8-10.6)
[2017-07-07 06:04] LABS: ALT 31 U/L (21-72); AST 18 U/L (17-59); Albumin 3.6 g/dL (3.5-5.0); Alkaline Phosphatase 29 U/L (38-126); Anion Gap 10 mmol/L; Blood Urea Nitrogen 14 mg/dL (9-20); Calcium 8.9 mg/dL (8.4-10.2); Carbon Dioxide 27 mmol/L (22-30); Chloride 105 mmol/L (98-107); Glucose 98 mg/dL (74-99); Potassium 3.8 mmol/L (3.5-5.1); Sodium 142 mmol/L (137-145); Total Bilirubin 0.3 mg/dL (0.2-1.3); Total Protein 5.8 g/dL (6.3-8.2)
[2017-07-07] MEDS: metFORMIN 500 MG TAB PO SCH ×2 (06:05→08:38)
[2017-07-07 06:13] LABS: Glucose,Whole Blood 112 mg/dL (75-99)
[2017-07-07] MEDS: INSULIN ASPART 100 UNIT/ML 1 ML 10 ML VIAL SQ SCH (06:34)
[2017-07-07] MEDS ORDERED: PROPOFOL 10 MG/ML 20 ML VIAL IV ONE (07:42)
[2017-07-07] MEDS ORDERED: LACTATED RINGERS 1,000 ML IV ONE (07:48)
--- NOTE | 2017-07-07 07:50 | P.PCN ---
Date of Procedure: 07/07/17 Procedure(s) Performed: BRIEF HISTORY: Patient is a 61-year-old, pleasant, white male, admitted to the hospital with acute upper GI bleed. He had 7 episodes of hematemesis yesterday. Hemoglobin is 11.2 g/dL. He scheduled for an upper endoscopy to evaluate further.. PROCEDURE PERFORMED: Esophagogastroduodenoscopy. PREOPERATIVE DIAGNOSIS: Acute upper GI bleed. IV sedation per anesthesia. PROCEDURE: After informed consent was obtained, the patient was brought into the endoscopy unit. IV sedation was administered by Anesthesia under continuous monitoring. Initially the Olympus GIF-140 video endoscope was inserted into the mouth. Esophagus intubated without any difficulty. It was gradually advanced into the stomach and duodenum and carefully examined. The bulb and the second part of the duodenum appeared normal. The scope at this time was withdrawn to the stomach, adequately insufflated with air, and upon careful examination, mucosa of the antrum, had mild erythema consistent with minimal gastritis. The body, cardia and the fundus appeared normal. The scope was then withdrawn into the esophagus. The GE junction was located at 41 cm from the incisors. There was a superficial Addis-Galeana tear at the GE junction extending 2 cm proximal to the GE junction and a small adherent clot but no active bleeding. The rest of the esophagus appeared normal. There were no erosions or ulcerations seen and the patient tolerated the procedure well. IMPRESSION: 1. Superficial Addis-Galeana tear at the GE junction with a small adherent clot but no active bleeding. 2. Minimal gastritis. RECOMMENDATIONS: The findings of this examination were discussed with the patient. He will be continued on Protonix 40 mg daily. Diet will be advanced as tolerated. Patient can be discharged home today..
[2017-07-07] MEDS: PANTOPRAZOLE 40 MG/10 ML VIAL IVP SCH (08:38)
[2017-07-07 08:46] VITALS: BP 120/73; PULSE 68; TEMP 97.6
--- NOTE | 2017-07-07 11:28 | P.DS ---
Providers Date of admission: 07/05/17 15:16 Expected date of discharge: 07/07/17 Attending physician: Kassy Fajardo Primary care physician: Dilia Velez [facility] Course: discharge diagnosis 1. Hematemesis: likely secondary to superficial Addis-Galeana tear at the GE junction with a small adherent clot with no active bleeding noted on EGD. EGD also revealed minimal gastritis. GI service recommended Protonix 40mg dailiy 2. Syncopal episode likely vasovagal due to the Vomiting. Echo shows an EF of 55-60 3. Leukocytosis present on admission likely reactive: White count has normalized 4. Diabetes mellitus type 2: Resume metformin and sliding scale coverage 5. Essential hypertension: blood pressures have improved. Resume 6. Peripheral vascular disease: Hold Pletal for now due to the hematemesis 7. Hyperlipidemia continue fenofibrate Hospital course This is a 61-year-old male, a patient of [facility]. Patient has a past medical history of diabetes mellitus, hypertension, myocardial infarction , hyperlipidemia, peripheral vascular disease. Patient presents to the emergency room after having hematemesis as well as a syncopal episode. Patient reports that he had not slept well the night before and woke up in the morning and vomited what he presumed as blood 3 times. He does report drinking a lot of coffee. When he was coming back from the restroom he passed out. He is unsure of how long he passed out for. Family members called EMS. And initially when EMS arrived patient was unresponsive. When he came to he was being placed in the ambulance. Hemoglobin on admission 10.9 white count elevated at 12.6. Gastric occult blood was negative on admission. Patient had one episode of emesis in the ER. He is currently nothing by mouth. He's had no further emesis. He aspirin and Pletal have been placed on hold. Repeat hemoglobin this morning is 11.2. Patient seen by GI service and offered have an EGD for tomorrow morning. At this time patient is refusing. Also requests patient syncopal episode and echocardiogram has been ordered as well as orthostatics. Patient has been up and ambulating this morning without any dizziness or lightheadedness. Denies any chest pain or shortness of breath. Denies any further episodes of vomiting. Denies any bowel movement changes or urinary symptoms. No previous history of GI bleed. Denies any nicotine use or alcohol use. EKG normal sinus rhythm on admission. Patient does admit to having issues with heartburn on a regular basis. He does drink about 4 cups of coffee a day. patient has had no further episodes of hematemesis. EGD results as stated above. GI service recommending Protonix. patient is medical stable for discharge. He has been cleared by GI servicefor discharge. I performed an examination of the patient and discussed their management with the physician Utility System Repairer. I have reviewed the Physician Utility System Repairer's notes and agree with the documented findings and plan of care Patient Condition at Discharge: Stable Plan - Discharge Summary Discharge Rx Participant: No New Discharge Prescriptions: New Pantoprazole Sodium [Protonix] 40 mg PO DAILY #30 tablet. Continue Ergocalciferol [Vitamin D2 (DRISDOL)] 50,000 unit PO SA Ramipril [Altace] 2.5 mg PO DAILY metFORMIN HCL 1,000 mg PO BID Fenofibrate Nanocrystallized [Fenofibrate] 145 mg PO DAILY Gabapentin 600 mg PO HS Aspirin [Adult Low Dose Aspirin EC] 81 mg PO DAILY #0 Cilostazol [Pletal] 100 mg PO BID #0 Discharge Medication List Ergocalciferol [Vitamin D2 (DRISDOL)] 50,000 unit PO SA 05/26/16 [History] Ramipril [Altace] 2.5 mg PO DAILY 05/26/16 [History] metFORMIN HCL 1,000 mg PO BID 05/26/16 [History] Fenofibrate Nanocrystallized [Fenofibrate] 145 mg PO DAILY 07/05/17 [History] Gabapentin 600 mg PO HS 07/05/17 [History] Aspirin [Adult Low Dose Aspirin EC] 81 mg PO DAILY #0 07/07/17 [Rx] Cilostazol [Pletal] 100 mg PO BID #0 07/07/17 [Rx] Pantoprazole Sodium [Protonix] 40 mg PO DAILY #30 tablet. 07/07/17 [Rx] Follow up Appointment(s)/Referral(s): Dilia Velez DO [Primary Care Provider] - 1 Week Activity/Diet/Wound Care/Special Instructions: Diet: cardiac Activity: as tolerated Discharge Disposition: HOME SELF-CARE
[2017-07-07 11:46] LABS: Glucose,Whole Blood 153 mg/dL (75-99)
== END 2017-07-07 13:15 | disposition home or self-care (01) | DRG 369 ==
LOC: EC 13:16 → 6SEL 15:16
PROVIDERS: ADMIT Internal Medicine; ATTEND Internal Medicine
PROC: 0DJ08ZZ Inspection of Upper Intestinal Tract, Via Natural or Artificial Opening Endoscopic (ICD-10-PCS; principal; 2017-07-07 15:20)
DX: K22.6 Gastro-esophageal laceration-hemorrhage syndrome (principal); D62 Acute posthemorrhagic anemia; K29.70 Gastritis, unspecified, without bleeding; E11.40 Type 2 diabetes mellitus with diabetic neuropathy, unspecified; E11.51 Type 2 diabetes mellitus with diabetic peripheral angiopathy without gangrene; I10 Essential (primary) hypertension; E78.5 Hyperlipidemia, unspecified; D72.829 Elevated white blood cell count, unspecified; I25.2 Old myocardial infarction; G43.909 Migraine, unspecified, not intractable, without status migrainosus; Z79.82 Long term (current) use of aspirin; Z79.84 Long term (current) use of oral hypoglycemic drugs; Z79.899 Other long term (current) drug therapy; Z87.891 Personal history of nicotine dependence; Z91.018 Allergy to other foods
CPT/HCPCS: 36415; 43235; 80048; 80053; 82271; 82550; 82553; 83036; 83520; 83605; 84484; 85025; 85610; 85730; 86850; 86900; 86901; 93005; 93306; 96361; 96374; 96375; 99285

== ENCOUNTER 2021-01-11 11:02 | Day surgery (SDC) | payer BC ==
[2021-01-07 14:52] VITALS: BMI 22.3
[2021-01-11 11:52] VITALS: TEMP 97.3
[2021-01-11 11:58] LABS: Glucose,Whole Blood 116 mg/dL (75-99)
[2021-01-11] MEDS ORDERED: LIDOCAINE 1% (10MG/ML) FOR IV START INTRADERMA ONE (11:59)
[2021-01-11] MEDS ORDERED: PROPOFOL 10 MG/ML 20 ML VIAL IV ONE (12:50)
[2021-01-11] MEDS ORDERED: LIDOCAINE 1% INJ 10MG/ML (20 ML MDV) ONE (12:50)
--- NOTE | 2021-01-11 13:04 | P.GSHP ---
History of Present Illness H&P Date: 01/11/21 Chief Complaint: GI bleed This is a 65-year-old male who presents today for EGD. He's had intermittent issues with emesis with GI bleed. Patient's presumed to have a previous history of Addis-Galeana tear. Past Medical History Past Medical History: Diabetes Mellitus, Hyperlipidemia, Hypertension, Myocardial Infarction ([place]), Osteoarthritis ([place]) Additional Past Medical History / Comment(s): coughed up "chunck of blood" 2 months ago, hx migraines, hx ulcer, on gabapentin when asked if he had neuropathy -he stated no Last Myocardial Infarction Date:: 2011 History of Any Multi-Drug Resistant Organisms: None Reported Past Surgical History: Tonsillectomy Additional Past Surgical History / Comment(s): colonoscopy Past Anesthesia/Blood Transfusion Reactions: No Reported Reaction Smoking Status: Former smoker - Past Family History Sister(s) Family Medical History: Cancer Additional Family Medical History / Comment(s): colon Father Family Medical History: Unable to Obtain Additional Family Medical History / Comment(s): pt stated he never knew his dad Mother Additional Family Medical History / Comment(s): stated from poss medication reaction Medications and Allergies Home Medications Medication Instructions Recorded Confirmed Type metFORMIN HCL [Glucophage] 1,000 mg PO BID 05/26/16 01/11/21 History Fenofibrate Nanocrystallized 145 mg PO DAILY 07/05/17 01/11/21 History [Fenofibrate] Gabapentin 600 mg PO HS 07/05/17 01/11/21 History Ramipril [Altace] 5 mg PO DAILY 01/07/21 01/11/21 History Allergies Allergy/AdvReac Type Severity Reaction Status Date / Time onion Allergy Dyspnea,throat Verified 01/07/21 14:39 swelling Surgical - Exam Vital Signs Temp Pulse Resp BP Pulse Ox 97.3 F L 69 16 165/90 98 01/11/21 11:51 01/11/21 11:51 01/11/21 11:51 01/11/21 11:51 01/11/21 11:51 - General well developed, well nourished, no distress - Eyes PERRL - ENT normal pinna - Neck no masses - Respiratory normal expansion - Cardiovascular Rhythm: regular - Abdomen Abdomen: soft, non tender Results - Labs Abnormal Lab Results - Last 24 Hours (Table) 01/11/21 Range/Units 11:55 POC Glucose (mg/dL) 116 H (75-99) mg/dL Assessment and Plan Assessment: History of hematemesis. We'll perform EGD.
--- NOTE | 2021-01-11 13:09 | P.OP ---
Date of Procedure: 01/11/21 Preoperative Diagnosis: Hematemesis Addis-Galeana tear Postoperative Diagnosis: Antral gastritis Procedure(s) Performed: EGD Anesthesia: MAC Surgeon: Justin Jay Pathology: other (Antrum) Condition: stable Disposition: PACU Description of Procedure: The patient's placed on the endoscopy table in the lateral position. He received IV sedation. The gastroscope placed oropharynx passed in the esophagus into the stomach. Scope was then placed through the pylorus. The first and second portion of the duodenum appeared normal. The scope was then brought back the antrum this is minimal inflamed. A biopsies performed. The scope was then retroflexed and the remainder of the stomach appeared normal. There was no significant hiatal hernia. The GE junction was at 47. The distal esophagus appeared normal. There is no evidence of any tears of the lower esophagus. The proximal esophagus appeared normal. Scope withdrawn for patient. There is no evidence of any upper GI bleed. There was only some minimal antral gastritis.
[2021-01-11 13:18] LABS: Glucose,Whole Blood 103 mg/dL (75-99)
[2021-01-11 13:26] VITALS: BP 122/81; PULSE 63; RESP 16
== END 2021-01-11 13:45 | disposition home or self-care (01) ==
LOC: ORWHC2ENDO 11:02
PROVIDERS: ATTEND Surgery
DX: K22.6 Gastro-esophageal laceration-hemorrhage syndrome (principal); E11.9 Type 2 diabetes mellitus without complications; E78.5 Hyperlipidemia, unspecified; I10 Essential (primary) hypertension; I25.2 Old myocardial infarction; M19.90 Unspecified osteoarthritis, unspecified site; Z79.84 Long term (current) use of oral hypoglycemic drugs; Z87.891 Personal history of nicotine dependence
CPT/HCPCS: 43239; J2001; J2704